=== PATIENT | female | born 2000 | race African-American/Black ===

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

== ENCOUNTER 2025-10-15 13:37 | Emergency (ER) | payer MEDICAID, OTHER ==
[~2025-10-15] VITALS: Ht 170.2 cm; Wt 68.0 kg
[2025-10-15 13:38] VITALS: TEMP 36.7; O2SAT 100
[2025-10-15 14:06] VITALS: BP 109/74; PULSE 100; RESP 16; O2SAT 99
== END 2025-10-15 14:07 | disposition home or self-care (01) ==
LOC: ER 13:37
DX: S49.92XA Unspecified injury of left shoulder and upper arm, initial encounter (principal); Y04.0XXA Assault by unarmed brawl or fight, initial encounter; Y93.89 Activity, other specified; Y92.89 Other specified places as the place of occurrence of the external cause; Y99.8 Other external cause status
CPT/HCPCS: 99282